=== PATIENT | male | born 1955 | race Two or more races ===

== ENCOUNTER 2017-04-23 11:24 | Inpatient (IN) | payer MEDICARE, MEDICAID ==
[2017-04-23] MEDS ORDERED: NS 0.9% 1000 ML* 1,000 ML IV SCH ×2 (12:00→14:00)
[2017-04-23] MEDS ORDERED: cefTRIAXone(*) 1 GM in NS 0.9% 50 ML* 50 ML IVPB ONE (12:09)
[2017-04-23] MEDS ORDERED: cefTRIAXone(*) 1 GM ADVAN/BAG ONE (12:23)
[2017-04-23 12:42] LABS: Add Diff/Slide Review? Slide Review Added; Comments Flag Yes; Hematocrit 50 % (42-52); Hemoglobin 16.1 g/dl (14.0-18.0); Mean Corpuscular HGB Conc 33 g/dl (31-36); Mean Corpuscular Hemoglobin 28 pg (27-31); Mean Corpuscular Volume 87 fL (80-94); Mean Platelet Volume 9 um3 (7.4-10.4); Red Blood Count 5.71 10^6/ul (4.0-5.4); Red Cell Distribution Width 14 % (10.5-15); White Blood Count 3.1 10^3/ul (3.5-10.8)
[2017-04-23 12:57] LABS: Troponin I 0.01 ng/mL (<0.04)
[2017-04-23 12:58] LABS: Albumin 4.2 g/dL (3.2-5.2); BUN/Creatinine Ratio 17.2 (8-20); C Reactive Protein 9.13 mg/L (< 5.00); Calcium 10.3 mg/dL (8.6-10.3); EGFR Non-African American 41.2 (>60); Globulin 3.7 g/dL (2-4); Magnesium 1.7 mg/dL (1.9-2.7); Potassium 3.7 mmol/L (3.5-5.0); Total Bilirubin 1.8 mg/dL (0.2-1.0); Total Protein 7.9 g/dL (6.4-8.9)
[2017-04-23 13:19] LABS: Immature Granulocytes 23 % (0-9); Neutrophil % 72 % (38-83)
[2017-04-23 13:22] LABS: RBC Morphology Normal (Normal)
[2017-04-23] MEDS ORDERED: Cefepime 2 GM in Dextrose(*) 2 GM/50 ML BAG IV SCH (14:00)
[2017-04-23] MEDS ORDERED: NS 0.9% 1000 ML* 1,000 ML IV ONE ×3 (14:02→17:24)
--- NOTE | 2017-04-23 14:03 | RAD ---
INDICATION: Edema COMPARISON: March 03, 2016 TECHNIQUE: An AP portable view obtained at 1308 hours is submitted. FINDINGS: Bones/Soft Tissues: There are no acute bony findings. Cardiomediastinal: The cardiomediastinal silhouette is normal. Lungs: There are no acute infiltrates. There is mild hyperinflation with mild chronic interstitial change. Pleura: There are no pleural effusions. Other: None IMPRESSION: NO ACTIVE DISEASE.
--- NOTE | 2017-04-23 14:07 | RAD ---
INDICATION: Penile and scrotal edema. Urinary retention. Indwelling urinary catheter. Parkinson's disease. COMPARISON: March 03, 2016 CT. TECHNIQUE: Multidetector CT images were obtained from the lung bases to the ischial tuberosities. Evaluation of the viscera is limited without IV contrast. Multiplanar reformation. REPORT: Bulla at the inferior lingula as on the prior exam. Negative for pleural effusions. Negative for cardiomegaly or pericardial effusion. No CT abnormality of the unenhanced liver. Distended bladder without suspicious CT finding. Negative for biliary dilatation. Unremarkable pancreas and spleen. Negative for CT abnormality of the upper GI or small bowel. While the appendix is not discretely visualized, there is no inflammatory change in the right lower quadrant or region of the tip of the cecum to suggest presence of an acute inflammatory process. Small volume pelvic ascites. Negative for free air. Small fat-containing umbilical hernia without inflammatory change. Unremarkable adrenal glands. 5 mm calyceal stone lower pole RIGHT kidney increased in size over the prior exam. Staghorn calculus at the mid to lower pole of the LEFT kidney measuring up to 3.1 cm cephalocaudal significant increased over the prior exam. Negative for hydronephrosis. Unremarkable nondilated ureters. Catheterized decompressed urinary bladder. Diffuse mild prominence of the urinary bladder wall is nonspecific given decompressed state however trabeculation or cystitis is not excluded. Large bilateral hydroceles at the partially visualized scrotum. Extensive subcutaneous edema at the anterior pelvic wall and perineum as well as the penis. Negative for subcutaneous emphysema. Upper normal short axis bilateral inguinal lymph nodes. Negative for lymphadenopathy. Normal diameter abdominal aorta. Mildly ectatic LEFT common iliac artery measuring up to 1.6 cm diameter without change. Negative for suspicious osseous lesions. IMPRESSION: 1. Urolithiasis increased over the prior exam. Negative for obstructive uropathy. 2. Diffuse mild prominence of the urinary bladder wall is nonspecific given decompressed catheterized state however trabeculation or cystitis is not excluded. 3. Large bilateral hydroceles at the partially visualized scrotum. Extensive subcutaneous edema at the anterior pelvic wall and perineum as well as the penis. Negative for subcutaneous emphysema to definitively identify Ava gangrene. 4. Upper normal bilateral inguinal lymph nodes.
[2017-04-23] MEDS ORDERED: Magnesium Sulfate 2 GM IV* 2 GM/50 ML BAG IVPB ONE (14:14)
[2017-04-23] MEDS ORDERED: Vancomycin per Pharmacy* NOTE FOLLOW UP PRN (14:18)
[2017-04-23] MEDS ORDERED: HYDROcodone/ACETAMIN 5-325 MG* 1 TAB PO PRN (14:31)
--- NOTE | 2017-04-23 14:38 | ED ---
Yosi Estrella Benjamin, scribed for Jorge A Jose MD on 04/23/17 at 1206 . GI/ HPI - HPI Summary HPI Summary: 61yo male comes from [facility] for a catheter change. Pt has hx of Parkinson s disease and pt is nonverbal. Pt exhibits scrotal and penile swelling. Also has pre-existing wounds in bilateral LE. LEVEL 5 CAVEAT pt is nonverbal. - History of Current Complaint Time Seen by Provider: 04/23/17 11:34 Stated Complaint: CATH NEEDS TO BE CHANGE Hx From Patient Unobtainable Due To: Other - LEVEL 5 CAVEAT pt is nonverbal. Timing: Constant Current Severity: None Pain Intensity: 0 Location of Pain: None Associated Signs and Symptoms: Positive: Other: - penile and scrotal edema Additional Signs & Symptoms: Positive: Penile Swelling - Allergy/Home Medications Allergies/Adverse Reactions: Allergies Allergy/AdvReac Type Severity Reaction Status Date / Time Sulfamethoxazole Allergy Unknown Unknown Verified 07/30/13 12:33 w/Trimethoprim Reaction [From Bactrim] Details Home Medications: Home Medications Apixaban* [Eliquis*] 5 mg PO BID 04/23/17 [History Confirmed 04/23/17] Hydrocodone-Acetaminophen [Hydrocodone Bitartrate/AC 7.5-325 mg] 1 tab PO TID [History Confirmed 04/23/17] Menthol-Methyl Salicylate (Divya [Muscle Rub 10-15 %] 1 cre TOPICAL Q2HR PRN 04/23 [History Confirmed 04/23/17] Ranitidine TAB (NF) [Zantac TAB (NF)] 75 mg PO QAM 04/23/17 [History Confirmed 04/23/17] traZODone TAB* [Desyrel TAB*] 50 mg PO BEDTIME 04/23/17 [History Confirmed 04/23] PMH/Surg Hx/FS Hx/Imm Hx Endocrine/Hematology History: Denies: Hx Anticoagulant Therapy, Hx Diabetes, Hx Thyroid Disease, Other Endocrine/Hematological Disorders Cardiovascular History: Denies: Hx Hypertension, Hx Pacemaker/ICD, Other Cardiovascular Problems/ Disorders Respiratory History: Denies: Hx Asthma, Hx Chronic Obstructive Pulmonary Disease (COPD), Other Respiratory Problems/Disorders GI History: Denies: Other GI Disorders History: Reports: Hx Renal Disease - has permaenet indweeling cath Denies: Other Problems/Disorders Musculoskeletal History: Reports: Hx Arthritis Comment Only: Other Musculoskeletal History - Parkinson's Sensory History: Reports: Hx Contacts or Glasses, Hx Vision Problem Denies: Other Sensory Impairments Opthamlomology History: Reports: Hx Contacts or Glasses, Hx Vision Problem Denies: Other Sensory Impairments Neurological History: Denies: Hx Dementia, Other Neuro Impairments/Disorders Comment Only: Hx Seizures - parkinsons disease Psychiatric History: Denies: Hx Substance Abuse, Other Psychiatric Issues/Disorders - Cancer History Cancer Type, Location and Year: parkinsons, carpal tunnel, arthritis - Immunization History Date of Tetanus Vaccine: Unknown Infectious Disease History: No Infectious Disease History: Denies: Hx Hepatitis, Hx Human Immunodeficiency Virus (HIV), Traveled Outside the [place] in Last 30 Days - Family History Known Family History: Positive: Unknown - LEVEL 5 CAVEAT pt is nonverbal. - Social History Alcohol Use: None Alcohol Amount: "a couple of glasses of wine per night" Substance Use Type: Reports: None Substance Use Comment - Amount & Last Used: "I smoke when I can because it helps the Parkinsons" Smoking Status (MU): Never Smoked Tobacco Review of Systems - ROS Summary Review of Systems Summary: LEVEL 5 CAVEAT pt is nonverbal. All Other Systems Reviewed And Are Negative: No Physical Exam Triage Information Reviewed: Yes Vital Signs On Initial Exam: Initial Vitals Temp Pulse Resp BP Pulse Ox 102.8 F 119 13 120/70 97 04/23/17 11:50 04/23/17 11:50 04/23/17 11:50 04/23/17 11:50 04/23/17 11:50 Vital Signs Reviewed: Yes Completion Of Physical Exam Limited Due To: Level 5 - LEVEL 5 CAVEAT pt is nonverbal. Appearance: Positive: No Pain Distress, Well-Nourished Skin: Positive: Warm, Skin Color Reflects Adequate Perfusion, Dry Head/Face: Positive: Normal Head/Face Inspection Eyes: Positive: EOMI, DALJIT ENT: Positive: Normal ENT inspection Neck: Positive: Supple, Nontender Respiratory/Lung Sounds: Positive: Clear to Auscultation, Breath Sounds Present Cardiovascular: Positive: RRR Abdomen Description: Positive: Nontender, Soft Male Genital Exam: Positive: other - glandular hypospadias, penile and scrotal edema Musculoskeletal: Positive: Normal Neurological: Positive: Other - pt is non verbal Diagnostics - Vital Signs Vital Signs Temp Pulse Resp BP Pulse Ox 11/30/17 11:50 102.8 F 119 13 120/70 97 - Laboratory Lab Results: Lab Results 04/23/17 04/23/17 04/23/17 Range/Units 12:00 12:00 12:00 WBC 3.1 L (3.5-10.8) 10^3/ul RBC 5.71 H (4.0-5.4) 10^6/ul Hgb 16.1 (14.0-18.0) g/dl Hct 50 (42-52) % MCV 87 (80-94) fL MCH 28 (27-31) pg MCHC 33 (31-36) g/dl RDW 14 (10.5-15) % Plt Count 251 (150-450) 10^3/ul MPV 9 (7.4-10.4) um3 Immature Gran % (Auto) 23 H (0-9) % Neut % (Auto) 92.9 H (38-83) % Lymph % (Auto) 3.9 L (25-47) % [place] % (Auto) 1.4 (1-9) % Eos % (Auto) 0.5 (0-6) % Baso % (Auto) 1.3 (0-2) % Absolute Neuts (auto) 2.9 (1.5-7.7) 10^3/ul Absolute Lymphs (auto) 0.1 L (1.0-4.8) 10^3/ul Absolute Monos (auto) 0 (0-0.8) 10^3/ul Absolute Eos (auto) 0 (0-0.6) 10^3/ul Absolute Basos (auto) 0 (0-0.2) 10^3/ul Absolute Nucleated RBC 0 10^3/ul Neutrophils % 72 (38-83) % Band Neutrophils % 23 H (0-8) % Lymphocytes % 2 L (25-47) % Monocytes % 3 (0-13) % Nucleated RBC % 0.1 Normal RBC Morphology Normal (Normal) INR (Anticoag Therapy) (0.89-1.11) APTT (26.0-36.3) seconds Sodium 138 (133-145) mmol/L Potassium 3.7 (3.5-5.0) mmol/L Chloride 102 (101-111) mmol/L Carbon Dioxide 25 (22-32) mmol/L Anion Gap 11 (2-11) mmol/L BUN 29 H (6-24) mg/dL Creatinine 1.69 H (0.67-1.17) mg/dL Est GFR ( Amer) 53.0 (>60) Est GFR (Non-Af Amer) 41.2 (>60) BUN/Creatinine Ratio 17.2 (8-20) Glucose 135 H (70-100) mg/dL Lactic Acid (0.5-2.0) mmol/L Calcium 10.3 (8.6-10.3) mg/dL Magnesium 1.7 L (1.9-2.7) mg/dL Total Bilirubin 1.80 H (0.2-1.0) mg/dL AST 23 (13-39) U/L ALT 6 L (7-52) U/L Alkaline Phosphatase 98 (34-104) U/L Total Creatine Kinase 115 (10-223) U/L CK-MB (CK-2) 3.5 (0.6-6.3) ng/mL Troponin I 0.01 (<0.04) ng/mL C-Reactive Protein 9.13 H (< 5.00) mg/L B-Natriuretic Peptide 123 H ( - 100) pg/mL Total Protein 7.9 (6.4-8.9) g/dL Albumin 4.2 (3.2-5.2) g/dL Globulin 3.7 (2-4) g/dL Albumin/Globulin Ratio 1.1 (1-3) Lipase 10 L (11.0-82.0) U/L TSH 1.00 (0.34-5.60) mcIU/mL Influenza A (Rapid) (Negative) Influenza B (Rapid) (Negative) 04/23/17 04/23/17 04/23/17 Range/Units 12:00 12:00 12:44 WBC (3.5-10.8) 10^3/ul RBC (4.0-5.4) 10^6/ul Hgb (14.0-18.0) g/dl Hct (42-52) % MCV (80-94) fL MCH (27-31) pg MCHC (31-36) g/dl RDW (10.5-15) % Plt Count (150-450) 10^3/ul MPV (7.4-10.4) um3 Immature Gran % (Auto) (0-9) % Neut % (Auto) (38-83) % Lymph % (Auto) (25-47) % [place] % (Auto) (1-9) % Eos % (Auto) (0-6) % Baso % (Auto) (0-2) % Absolute Neuts (auto) (1.5-7.7) 10^3/ul Absolute Lymphs (auto) (1.0-4.8) 10^3/ul Absolute Monos (auto) (0-0.8) 10^3/ul Absolute Eos (auto) (0-0.6) 10^3/ul Absolute Basos (auto) (0-0.2) 10^3/ul Absolute Nucleated RBC 10^3/ul Neutrophils % (38-83) % Band Neutrophils % (0-8) % Lymphocytes % (25-47) % Monocytes % (0-13) % Nucleated RBC % Normal RBC Morphology (Normal) INR (Anticoag Therapy) 1.79 H (0.89-1.11) APTT 29.6 (26.0-36.3) seconds Sodium (133-145) mmol/L Potassium (3.5-5.0) mmol/L Chloride (101-111) mmol/L Carbon Dioxide (22-32) mmol/L Anion Gap (2-11) mmol/L BUN (6-24) mg/dL Creatinine (0.67-1.17) mg/dL Est GFR ( Amer) (>60) Est GFR (Non-Af Amer) (>60) BUN/Creatinine Ratio (8-20) Glucose (70-100) mg/dL Lactic Acid 1.7 (0.5-2.0) mmol/L Calcium (8.6-10.3) mg/dL Magnesium (1.9-2.7) mg/dL Total Bilirubin (0.2-1.0) mg/dL AST (13-39) U/L ALT (7-52) U/L Alkaline Phosphatase (34-104) U/L Total Creatine Kinase (10-223) U/L CK-MB (CK-2) (0.6-6.3) ng/mL Troponin I (<0.04) ng/mL C-Reactive Protein (< 5.00) mg/L B-Natriuretic Peptide ( - 100) pg/mL Total Protein (6.4-8.9) g/dL Albumin (3.2-5.2) g/dL Globulin (2-4) g/dL Albumin/Globulin Ratio (1-3) Lipase (11.0-82.0) U/L TSH (0.34-5.60) mcIU/mL Influenza A (Rapid) Negative (Negative) Influenza B (Rapid) Negative (Negative) Result Diagrams: 04/23/17 12:00 04/23/17 12:00 Lab Statement: Any lab studies that have been ordered have been reviewed, and results considered in the medical decision making process. - Radiology CXR Xray Interpretation: No Acute Changes Radiology Interpretation Completed By: Radiologist - ED physician has reviewed this radiology report and agrees. - CT CT A/P CT Interpretation: Positive (See Comments) - IMPRESSION: 1. Urolithiasis increased over the prior exam. Negative for obstructive uropathy. 2. Diffuse mild prominence of the urinary bladder wall is nonspecific given decompressed catheterized state however trabeculation or cystitis is not excluded. 3. Large bilateral hydroceles at the partially visualized scrotum. Extensive subcutaneous edema at the anterior pelvic wall and perineum as well as the penis. Negative for subcutaneous emphysema to definitively identify Ava gangrene. 4. Upper normal bilateral inguinal lymph nodes. CT Interpretation Completed By: Radiologist - ED physician has reviewed this radiology report and agrees. Re-Evaluation - Re-Evaluation First Eval Re-Evaluation Time: 14:17 GIGU Course/Dx - Course Course Of Treatment: BP noted. Allergies noted. Medications reviewed. ADMIT HOSPITALIST. PROBABLE SEPSIS FROM UTI. INITIALLY NO IVF BOLUS IN ED DUE TO UNCERTANTY ABOUT URINARY OUT FLOW AND CHF (SCROTAL EDEMA). IVF BOLUS INITIATED AT ADMISSION. CRITICAL CARE TIME LESS THAN 30 MINUTES. - Diagnoses Provider Diagnoses: Sepsis, Edema of scrotum Discharge - Discharge Plan Condition: Stable Disposition: ADMITTED TO [facility] Referrals: Lyle Canales MD [Medical Doctor] - The documentation as recorded by the Yosi garcias Benjamin accurately reflects the service I personally performed and the decisions made by , Jorge A Jose MD.
[2017-04-23 14:59] LABS: Urine Bacteria Absent (Absent); Urine Bilirubin Negative (Negative); Urine Glucose Negative (Negative); Urine Nitrite Negative (Negative)
[2017-04-23] MEDS ORDERED: Vancomycin(*) 1,500 MG in NS 0.9% 250 ML* 250 ML IVPB ONE (15:00)
[2017-04-23] MEDS ORDERED: Vancomycin(*) 1,500 MG in NS 0.9% 500 ML* 500 ML IVPB ONE (15:00)
[2017-04-23] MEDS ORDERED: Carbidopa/Levodop 25/100 MG TAB(*) PO SCH ×2 (17:00→20:00)
[2017-04-23] MEDS: rOPINIRole TAB* 1 MG PO SCH ×2 (17:38→22:41)
--- NOTE | 2017-04-23 17:56 | PN ---
Hospitalist Progress Note Called to floor for bp 70/46. Patient co-examined with attending. Noted that NS bolus had not been initiated. Pt confused to place and time not to self. Pt denies pain. Patient bernard area again examined this attending edema noted again to penis and Scrotum edematous. Discussed case with critical care. Will given 4 liter bolus total now suspect patient is behind in fluid resuscitation. Will add clinda and will tx to icu. Will re-eval after fluid boluses if bp not improving will consider tx to tertiary care center given toni's could be a possibility however I still suspect the patient has sepsis from prostatitis due to urinary obstruction due to mosqueda becoming dislodged. Will follow closely. Discussed with attending he is in agreement. 1745 patient evaluated after first bolus infused noted to be eating at bedside. Mental status appears to be at baseline will follow.
[2017-04-23] MEDS ORDERED: Clindamycin 600 MG IVPREMIX(* 600 MG/50 ML SDV IV SCH (18:00)
[2017-04-23] MEDS: NS 0.9% 1000 ML* 2,000 ML IV ONE ×4 (18:22→20:21)
[2017-04-23 18:50] LABS: BUN/Creatinine Ratio 16.3 (8-20); Calcium 8.9 mg/dL (8.6-10.3); EGFR African American 41.5 (>60); EGFR Non-African American 32.2 (>60); Potassium 3.6 mmol/L (3.5-5.0)
--- NOTE | 2017-04-23 19:13 | HP ---
CC: Dr. Garcia from [facility] [place] * HISTORY AND PHYSICAL: DATE OF ADMISSION: 04/23/17 PRIMARY CARE PROVIDER: Dr. Garcia from [facility] [place]. ATTENDING PHYSICIAN WHILE IN THE HOSPITAL: Saul Christy MD * (report dictated by Dav Wilson NP) CHIEF COMPLAINT: Dislodged catheter. HISTORY OF PRESENT ILLNESS: Mr. Gates is a 61-year-old male patient, he has a history of Parkinson's; he has history of obesity; lymphedema; recently diagnosed with DVT, he is on Eliquis. He also has a history of arthritis, hypertension, hyperlipidemia, and he has been residing at [facility] [place], he said since 2009. He comes into the ED today, because apparently what had happened, it was found that the patient had edema to his scrotum and to his penis. It was noted that his catheter had been dislodged and he was sent here for replacement. When he got here in the ED, it was noted that he had a fever, he was tachycardic. He appeared to be septic. It was unclear how long the catheter had been dislodged for or how it got dislodged. The patient denies having any pain at this point. He says he does not have any pain in his genitals or any pain in his abdomen. He says that he just feels tired and weak. He denies any chest pain or shortness of breath. He says he has not had any trouble swallowing. Denies having any dysuria, frequency. He was evaluated here again, it was noted that he was tachycardic. He was febrile. He was leukopenic. There was concern for sepsis and we were asked to evaluate for admission. PAST MEDICAL HISTORY: Significant for, 1. Obesity. 2. DVT, on Eliquis. 3. Arthritis. 4. Hypertension. 5. Hyperlipidemia. 6. Parkinson's. 7. Lymphedema. PAST SURGICAL HISTORY: He says the only surgery he has had is a foot surgery. MEDICATIONS: Home meds according to [facility] [place] records include: 1. Tylenol 650 mg every 6 hours as needed. 2. Muscle Rub Cream 1 application topically every 2 hours as needed. 3. Sinemet half a tab at 0900, 0100, and 2000. 4. Sinemet 1 tablet at 1700. 5. Zantac 75 mg daily. 6. Cogentin 3 mg p.o. t.i.d. 7. Trazodone 50 mg p.o. at bedtime. 8. Carbidopa under the tongue 1 tablet at 6 in the morning. 9. Eldepryl 5 mg p.o. b.i.d. 10. Eliquis 5 mg daily. 11. Volga 1 tablet p.o. t.i.d. 12. Requip 3 mg p.o. 4 times a day. 13. Seroquel 25 mg at bedtime. 14. Lasix 40 mg daily. ALLERGIES: Allergies to medications include BACTRIM. FAMILY HISTORY: He says his mother is alive and well. She is also the surrogate decision maker and father has history of emphysema. SOCIAL HISTORY: He does not smoke or drink. Resides at [facility] [place]. Surrogate decision maker is his mother. REVIEW OF SYSTEMS: There is documented fever here, there [facility] none [facility]. Denies any significant weight change. No double vision. No ear discharge. Denies having any rhinorrhea. No sore throat. No thyroid enlargement. Denied having any chest pain. There is no orthopnea, nocturnal dyspnea. There was no abdominal discomfort, no nausea, no vomiting, no dysuria , no frequency, no seizure, no loss of consciousness, no pruritus, and no skin ulcerations. Review of 14 systems completed, all others negative. PHYSICAL EXAMINATION GENERAL: Mr. Gates is a 61-year-old male patient. He is chronically ill appearing. He is sitting in the ED stretcher. He does not appear to be in any acute distress. VITAL SIGNS: Blood pressure 120/70, pulse 119, respirations are 18, O2 sat 97% , temperature 102.8. HEENT: Head: Atraumatic. Eyes: EOMs are intact. Sclerae are anicteric and not pale. NECK: Supple. Throat: Oral mucosa appears to be dry. No oropharyngeal erythema. LUNGS: Clear to auscultation. No wheezes, rales, or rhonchi. HEART: Sounds S1, S2. He is tachycardic. ABDOMEN: Soft, flat, nontender. Bowel sounds are present. EXTREMITIES: Pulses were 2+ throughout. He did have some, what appeared to be , chronic venous stasis ulcer at the lower extremities. He does have on the left extremity some significant warmth and erythema to that left lower extremity and there is an open abrasion there as well to the mid pretibial area. He had 5/5 strength. NEUROLOGIC: The patient is awake, he is alert. He is oriented x3. His tongue is midline. 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 He does have a tremor noted. He has no gross focal deficits. SKIN: Intact with the exception of the abrasion to the left lower extremity. He does have what appears to be a stage 1 pressure ulcer on the sacrum. He has a penile and scrotal edema. The perineum was palpated. There was no pain on palpation or I cannot appreciate any subcutaneous emphysema. On my exam, there was no erythema noted there as well, just mostly in the sacrum. Otherwise the skin is intact. DIAGNOSTIC STUDIES/LAB DATA: WBC is 3.1, RBC of 5.71, hemoglobin of 16.1, hematocrit was 50, platelet count 251. His INR was 1.79, PTT at 29.6. Sodium 138, potassium 3.7, chloride 102, bicarb 25, BUN 29, creatinine 1.69 which is up from his baseline, glucose 135, lactate 1.7, calcium 10.3, mag 1.7. Total bilirubin 0.8, AST 23, ALT 6, alk phos 98. CK 115, CK-MB 3.5, troponin 0.01, CRP at 9, BNP of 123. Albumin of 4.2. His TSH was 1. Lipase low. Negative for flu. He did have a CT of the abdomen and pelvis. Impression: Urolithiasis increased over the prior exam. Negative for obstructive uropathy. Diffuse mild prominence of the urinary bladder wall, it is nonspecific given the compressed catheterized state, however, cystitis is not excluded or trabeculation. There are large bilateral hydroceles at the partially visualized scrotum. Extensive subcutaneous edema at the anterior pelvic wall and perineum as well as the penis. Negative for subcutaneous edema to definitely identify Ava gangrene. Upper normal bilateral inguinal lymph nodes. Chest x-ray showed no acute disease. Old medical records were reviewed. ASSESSMENT/PLAN: Mr. Gates is a 61-year-old male patient, coming into the ED today with complaints of dislodged catheter and also he was found to have scrotal edema and penile edema. On evaluation done here, he was noted to be septic. We were asked to evaluate for patient to be admitted under inpatient status for: 1. Sepsis. Secondary to most likely urinary source, possibly cellulitis. My plan at this point is to try to get a urinalysis. A culture is pending, but I do not have the UA. I suspect he probably became obstructed and probably now has again acute cystitis causing sepsis as evidenced by the tachycardia and the fever and he is also leukopenic. He also does have some acute renal failure on top of this. My plan will be to give him 2 L of fluids. He has been cultured here in the ED, we will musa culture him. I also will check a swallow eval, though I think aspiration is less likely and we will go ahead and place him on cefepime and vancomycin and follow him closely. I do note that he has subcutaneous edema, but no emphysema and he was nontender and not having any pain, so I think Ava is low on the differential. At this point, I think the more reasonable reason for infection is probably obstructive uropathy, is now resolved. 2. Acute renal failure. Probably related to obstructive uropathy, but we will get a FENa. His catheter is draining and we will hydrate him and follow his BMPs daily. 3. History of lymphedema. Continue with meds prescribed. 4. Parkinson's. Continue with meds prescribed. 5. Recent deep vein thrombosis. He is on Eliquis. 6. Hypertension. We will hold his Lasix in the setting of acute . 7. Hyperlipidemia. Continue with meds prescribed. 8. DVT prophylaxis will be on Eliquis. 9. Code status: He wishes to be full code. 10: Fluid, electrolytes and nutrition: He can be on regular diet. TIME SPENT: Time spent on the admission was 60 minutes, greater than half of the time was spent [id number] with the patient, obtaining history and physical , the other half of the time was spent going over the plan of care with the patient and implementing the plan of care. I did discuss plan of care with my attending, Dr. Christy, who is in agreement. DAV WILSON, RENEE [id number]/[facility] #: [id number] MARLEN
[2017-04-23] MEDS ORDERED: Norepinephrine 16MCG/ML IVPRE* 4,000 MCG/250 ML BAG IV ONE (19:51)
[2017-04-23] MEDS ORDERED: Norepinephrine 16MCG/ML IVPRE* 4,000 MCG/250 ML BAG IV SCH (20:00)
[2017-04-23] MEDS ORDERED: Apixaban* 5 MG TAB PO SCH (21:00)
[2017-04-23] MEDS ORDERED: Benztropine TAB* 1 MG PO SCH (21:00)
[2017-04-23] MEDS ORDERED: QUEtiapine TAB* 25 MG PO SCH (21:00)
[2017-04-23] MEDS ORDERED: Selegiline TAB* 5 MG PO SCH (21:00)
[2017-04-23] MEDS ORDERED: traZODone TAB* 50 MG TAB PO SCH (21:00)
[2017-04-23] MEDS ORDERED: Sodium Bicarbonate 8.4%* 50 ML SYRINGE IV ONE (22:20)
[2017-04-23 23:40] VITALS: BP 107/54
[2017-04-24] MEDS ORDERED: Vancomycin(*) 1,000 MG in NS 0.9% 250 ML* 250 ML IVPB SCH (04:30)
[2017-04-24] MEDS ORDERED: Carbidopa/Levodop 25/100 MG TAB(*) PO SCH (06:00)
[2017-04-24] MEDS ORDERED: Famotidine TAB* 20 MG PO SCH (09:00)
--- NOTE | 2017-04-24 13:21 | DS ---
CC: Dr. Garcia * DISCHARGE SUMMARY: DATE OF ADMISSION: 04/23/17 DATE OF TRANSFER: 04/23/17 ACCEPTING PHYSICIAN IN TRANSFER: Dr. Giordano from [facility]. PRIMARY CARE PROVIDER: Dr. Garcia. ATTENDING PHYSICIAN WHILE IN THE HOSPITAL: Saul Christy MD * (report dictated by Jacobo Lockett). SUPERVISING PHYSICIAN NOW: Dr. Rodriguez and Dr. Dorothy Briggs. 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 SECONDARY DIAGNOSES: Include: 1. Deep vein thrombosis, unknown duration, and once he was diagnosed, looks like he was on Eliquis started back in January. We will need to get records from [facility] facility. They may have done an ultrasound outpatient. 2. Parkinson's. 3. Acute renal failure. 4. Hypertension. TRANSFER MEDICATIONS: Include: 1. Normal saline 150 an hour. 2. Cefepime 2 g IV every 24 hours. 3. Vancomycin 1000 mg IV q. 12. 4. Clindamycin 600 mg every 8 hours. 5. Levophed 10 mcg a minute. His home medications according to the [facility] notes include: 1. Tylenol 650 mg every 6 hours. 2. Muscle Rub cream topically every 2 hours as needed. 3. Sinemet half a tab at 0900, 1300, and 2000. 4. Sinemet 1 tablet at 1700. 5. Zantac 75 mg daily. 6. Cogentin 3 mg p.o. t.i.d. 7. Trazodone 50 mg at bedtime. 8. Carbidopa ODT 1 tablet at 0600. 9. Eldepryl 5 mg p.o. b.i.d. 10. Apixaban 5 mg p.o. b.i.d., started in January of this year. 11. Hydrocodone 1 tablet p.o. t.i.d. 12. Requip 3 mg p.o. q.i.d. 13. Seroquel 25 mg p.o. at bedtime. 14. Lasix 40 mg p.o. daily. PHYSICAL EXAM ON TRANSFER: Blood pressure 103/47 with a pulse of 100, respirations were 25, O2 sat 95% on room air, and temperature of 100.3. General : At this time, Mr. Gates is a 61-year-old male patient. He is sitting in the ICU bed. He does not appear to be in any respiratory acute distress. He is awake. He is confused to place. He thinks he is in [facility]. He knows his name. He appears to be chronically ill. He does not appear to be in any acute respiratory distress. HEENT: Head: Atraumatic. Eyes: EOMs intact. Sclerae anicteric, not pale. Neck was supple. Throat: Oral mucosa appears to be dry. No oropharyngeal erythema. Heart: Sounds S1 and S2. Regular, rate and rhythm. No murmurs, rubs, or gallops. Lungs are clear to auscultation. No wheezes, rales, or rhonchi. Abdomen: Soft, flat, nontender. Bowel sounds are present. Extremities: Pulses were 2+ throughout. He did have erythema and abrasions noted to the right lower extremity. system: He does have scrotal edema. In addition to this, does have some erythema noted in the sacrum. He has scrotal and penile edema. He does have an abrasion on the scrotum, it is now painful with palpation of the scrotum. There is no pain on palpation of the perineum. Otherwise, the skin was grossly intact. Neurologically; again he is drowsy, but he awakens to his name. He is alert. He is oriented to self and time. He said it was almost Chato to me tonight. Speech is clear. Tongue midline. No gross focal deficits. Skin: Grossly intact with the exception he has abrasions to bilateral lower extremities. He has stage I pressure ulcer noted to the sacrum. HISTORY OF PRESENT ILLNESS AND HOSPITAL COURSE: Mr. Gates is a 61-year-old male patient [facility] to [facility] emergency department today because his Brandt had become dislodged and there was noted to be scrotal edema and penile edema. The patient had come from the [place] [facility] for a catheter exchange. When he came in to the ED, the patient's catheter was changed and it was noted that he had a 1500 cc output immediately. He appeared to be obstructed. While in the ED, it was noted that he had a fever of 102.8, tachycardic at 119, respirations were 13, O2 sat 97%, blood pressure initially was 120/70. The patient was evaluated in the ED by myself. I noted that he had a white count of 3.1. He had bandemia. He did have notable scrotal edema and penile edema. His perineum was evaluated by myself and it was noted that he had no pain on palpation at this point, particularly in the perineum area. The patient did have a CAT scan, which did show a significant amount of edema in the perineal muscles, but there was no gas that was noted. There was no subcutaneous emphysema; there was none palpated on exam. He appeared to be stable. He was mentating well. He was breathing well. I actually initially admitted him to our telemetry floor to monitor his heart rate. I had ordered a liter bolus wide open, the ER had not given any because there was concern for the urinary retention and the scrotal edema. He got to the floor. Shortly arriving on the floor, I received the phone call that his blood pressures were systolics in the 70s. I asked the nursing staff up there to give him 3 L wide open. I went and evaluated the patient with my attending, Dr. Christy, at that time. We both felt that he will probably require ICU care. We were unsure what the infectious source was, it was possibly coming from prostatitis or gram- negative bacteremia from him having urinary retention. He was admitted down to the ICU. I did touch base with my residence director given the change in condition and the fact that he needed to be transferred to a higher level of care. At this point, we discussed giving him another 3 L of fluid for a total of 6 L. He , after the 3 L, responded a little bit. His blood pressure did go up from the 60s in to the 70s. Initially when he came down to the ICU, it looked like his blood pressure was 117/76. He was responding. However, they did drop again into the 70s, and at point, I made a decision to start the Levophed, gave him another 3 L of fluid. Again, he got a total of 6 L wide open. We repeated his lactic and his labs, it was noted at 1830 that his creatinine had gone up to 2.09. His lactic had climbed to 5.6. In addition to this, his bicarb was noted to be 21. At that point, I touched base with Dr. Rodriguez again and he evaluated the scans and that he said to continue with fluids and he said he was going to evaluate the scans and get him up on his Levo, which I had been doing. I did receive a phone call about an hour ago around 2100 and we discussed the case again, Dr. Rodriguez and myself and we felt that because he was just clinically with his vital signs not responding and he was requiring more Levo and Dr. Rodriguez has evaluated the scan and the amount of edema, there was concern that this may early Ava given his clinical status and now he has been deteriorating. At this point, a decision was made that he will need an higher level of care and we deemed transfer to [facility] was appropriate. Fortunately, he is still mentating about the same as he has been throughout the hospital course. He is making good urine output. He is making 30 to 40 cc an hour. I did bump his Levo up to 10 mcg/min to give him some time with perfusion. It hopefully help clear his acid loads secondary to the sepsis and help him perfuse. His blood pressure now was 103/40s. I also put him on 6 L empirically, because his respiratory rate had creeped into the mid 20s and his O2 sats have been maintaining, but I feel that the extra oxygen could again help him from a respiratory standpoint. Certainly, he does not need intubation at this point. I did touch base with Dr. Giordano who graciously accepted the patient at [facility]. They felt that he was stable for ground transport as did my attendings, Dr. Mag Briggs, who is the manager distribution covering, and Dr. Rodriguez. The patient is going to receive fluids at 150 an hour, be placed on Levophed at 10 mcg. It is unfortunately going through a peripheral, but again at this point we do no have central access. I did discuss this with the accepting physician. They were agreeable to this. His repeat lactic after the resuscitation was 4.1, so we will continue with fluids, we will transfer him. I am sending disc. I did touch base with the patient's mother, who is the surrogate decision maker, her name is Sofiya Gates. The number of her is . She at this point is in agreement with transfer and will be available for any questions. I did hold his Eliquis tonight. Again, presumably according to [facility] notes, he had recent DVT and he has been on this since January. We will need to address this, but again I am holding it for the concerns that if he does need an extensive surgery, he does not need to be on Eliquis. I could consider starting a heparin drip, but at this point I am going to hold off until he is evaluated at [facility]. His last dose was this morning at 0900. Hemodynamically, he is improving, but he is on excessive amount of pressors. He will be transferred to [facility]. On transfer again he is unstable given the fact that he is requiring so much Levophed. This is a complex case, I refer you to the chart for details. TIME SPENT: Time spent on the transfer, critical care time, was approximately 60 minutes, greater than half the time spent [id number] with the patient going over the discharge plan, the other half time was spent implementing the plan. I discussed it again with residence director, and also discussed it with Dr. Briggs. ENEIDA DELACRUZ, MANAGER CALL CENTER [id number]/CPS #: [id number] MARLEN
[2017-04-25] MEDS ORDERED: Vancomycin Trough Check NOTE FOLLOW UP ONE (04:00)
== END 2017-04-23 23:40 | disposition short-term general hospital (02) | DRG 871 ==
LOC: ED 11:24 → MEDTELE 13:54 → ICU 18:28
PROVIDERS: ADMIT Internal Medicine; ATTEND Internal Medicine
PROC: 3E033XZ Introduction of Vasopressor into Peripheral Vein, Percutaneous Approach (ICD-10-PCS; principal; 2017-04-23)
DX: A41.9 Sepsis, unspecified organism (principal); R65.21 Severe sepsis with septic shock; I82.409 Acute embolism and thrombosis of unspecified deep veins of unspecified lower extremity; N17.9 Acute kidney failure, unspecified; N49.3 Fournier gangrene; G20 Parkinson's disease; I10 Essential (primary) hypertension; E66.9 Obesity, unspecified; Z68.29 Body mass index [BMI] 29.0-29.9, adult; M19.90 Unspecified osteoarthritis, unspecified site; E78.5 Hyperlipidemia, unspecified; Z88.1 Allergy status to other antibiotic agents; I89.0 Lymphedema, not elsewhere classified
CPT/HCPCS: 36415; 71010; 74176; 80048; 80053; 81003; 81015; 82550; 82553; 82570; 83605; 83690; 83735; 83880; 84300; 84443; 84484; 85025; 85610; 85730; 86140; 87040; 87077; 87086; 87186; 87502; 87641; A9270-GY; J0692; J0696; J3370; J3475

== ENCOUNTER 2018-11-06 12:48 | Emergency (ER) | payer MEDICARE, MEDICAID ==
--- NOTE | 2018-11-06 13:20 | ED ---
Complex/Multi-Sys Presentation - HPI Summary HPI Summary: The patient is a 62 y/o M arriving by ambulance to [facility] from [facility] [place] with a chief complaint of gradual onset lethargy, chills, and diaphoresis over the last few days. He additionally c/o back pain. He denies fever, cough, abd pain, nausea, vomiting, or diarrhea. His pain is currently rated 9/10 in severity. There are no aggravating or alleviating factors. He states he hasn't been feeling himself lately. Hx of Parkinson's. Former smoker, no EtOH, no substance use. - History Of Current Complaint Chief Complaint: EDGeneral Time Seen by Provider: 11/06/18 13:02 Hx Obtained From: Patient Onset/Duration: Gradual Onset, Lasting Days, Still Present Timing: Days Severity Currently: Moderate Severity Initially: Mild Character: Dull Aggravating Factor(s): none Alleviating Factor(s): none Associated Signs And Symptoms: Positive: Back Pain, Diaphoresis, Other - lightheadedness, chills. Negative: Cough, Nausea, Vomiting, Diarrhea, Abdominal Pain, Fever - Allergies/Home Medications Allergies/Adverse Reactions: Allergies Allergy/AdvReac Type Severity Reaction Status Date / Time sulfamethoxazole Allergy Unknown Verified 11/06/18 13:28 [From Bactrim] Reaction Details trimethoprim [From Bactrim] Allergy Unknown Verified 11/06/18 13:28 Reaction Details Home Medications: Home Medications Carbidopa/Levodop CR 50/200(*) [Sinemet CR 50/200(*)] 1 tab.cr PO BID 11/06/18 [ History Confirmed 11/06/18] Cimetidine [Tagamet Hb] 200 mg PO BID 11/06/18 [History Confirmed 11/06/18] PMH/Surg Hx/FS Hx/Imm Hx Endocrine/Hematology History: Denies: Hx Anticoagulant Therapy, Hx Diabetes, Hx Thyroid Disease, Other Endocrine/Hematological Disorders Cardiovascular History: Denies: Hx Hypercholesterolemia, Hx Hypertension, Hx Pacemaker/ICD, Other Cardiovascular Problems/Disorders Respiratory History: Denies: Hx Asthma, Hx Chronic Obstructive Pulmonary Disease (COPD), Other Respiratory Problems/Disorders GI History: Denies: Other GI Disorders History: Reports: Hx Renal Disease - has permaenet indweeling cath Denies: Other Problems/Disorders Musculoskeletal History: Reports: Hx Arthritis Comment Only: Other Musculoskeletal History - Parkinson's Sensory History: Reports: Hx Vision Problem Denies: Hx Contacts or Glasses, Hx Hearing Aid, Other Sensory Impairments Opthamlomology History: Reports: Hx Vision Problem Denies: Hx Contacts or Glasses, Other Sensory Impairments Neurological History: Denies: Hx Dementia, Other Neuro Impairments/Disorders Comment Only: Hx Seizures - parkinsons disease Psychiatric History: Denies: Hx Substance Abuse, Other Psychiatric Issues/Disorders - Cancer History Cancer Type, Location and Year: parkinsons, carpal tunnel, arthritis - Immunization History Date of Tetanus Vaccine: Unknown Infectious Disease History: No Infectious Disease History: Denies: Hx Hepatitis, Hx Human Immunodeficiency Virus (HIV), Traveled Outside the [place] in Last 30 Days - Family History Known Family History: Negative: Hypertension - Social History Lives: Assisted Living Alcohol Use: None Hx Substance Use: No Substance Use Type: Reports: None Hx Tobacco Use: Yes Smoking Status (MU): Former Smoker Review of Systems Positive: Chills, Skin Diaphoresis, Other - lethargy. Negative: Fever Negative: Cough Negative: Abdominal Pain, Vomiting, Diarrhea, Nausea Positive: Other - back pain All Other Systems Reviewed And Are Negative: Yes Physical Exam - Summary Physical Exam Summary: VITAL SIGNS: Reviewed. GENERAL: Patient is a well-developed and obese male who is lying comfortable in the stretcher. Patient is not in any acute respiratory distress. HEAD AND FACE: No signs of trauma. No ecchymosis, hematomas or skull depressions. No sinus tenderness. EYES: PERRLA, EOMI x 2, No injected conjunctiva, no nystagmus. EARS: Hearing grossly intact. Ear canals and tympanic membranes are within normal limits. MOUTH: Oropharynx within normal limits. NECK: Supple, trachea is midline, no adenopathy, no JVD, no carotid bruit, no c- spine tenderness, neck with full ROM. CHEST: Symmetric, no tenderness at palpation LUNGS: Crackles in both bases of lungs. No wheezing. CVS: Regular rate and rhythm, S1 and S2 present, no murmurs or gallops appreciated. ABDOMEN: Soft, non-tender. No signs of distention. No rebound no guarding, and no masses palpated. Bowel sounds are normal. EXTREMITIES: 1+ pedal edema. FROM in all major joints, no cyanosis or clubbing. NEURO: Alert and oriented x 3. No acute neurological deficits. Speech is normal and follows commands. SKIN: Dry and warm. GCS: 15. Triage Information Reviewed: Yes Vital Signs On Initial Exam: Initial Vitals Temp Pulse Resp BP Pulse Ox 98.6 F 79 16 153/97 98 11/06/18 12:57 11/06/18 12:57 11/06/18 12:57 11/06/18 12:57 11/06/18 12:57 Vital Signs Reviewed: Yes - Douglas Coma Scale Best Eye Response: 4 - Spontaneous Best Motor Response: 6 - Obeys Commands Best Verbal Response: 5 - Oriented Coma Scale Total: 15 Diagnostics - Vital Signs Vital Signs Temp Pulse Resp BP Pulse Ox 11/06/18 12:57 98.6 F 79 16 153/97 98 - Laboratory Result Diagrams: 11/06/18 13:47 11/06/18 13:47 Lab Statement: Any lab studies that have been ordered have been reviewed, and results considered in the medical decision making process. - Radiology CXR Radiology Interpretation Completed By: Radiologist Summary of Radiographic Findings: COPD. Right shoulder dislocation. ED physician has reviewed this radiology report. - CT Brain CT CT Interpretation Completed By: Radiologist Summary of CT Findings: No acute intracranial pathology. ED physician has reviewed this radiology report. - EKG 1325 Cardiac Rate: NL - 79 BPM EKG Rhythm: Sinus Rhythm EKG Comparison: No Significant Change - Similar to previous EKG taken on 2010. Summary of EKG Findings: No ST elevations. Re-Evaluation - Re-Evaluation First Eval Re-Evaluation Time: 16:00 Comment: I discussed discharge home with the patient. Complex Multi-Symp Course/Dx Assessment/Plan: The patient is a 62 y/o M arriving by ambulance to [facility] from [facility], [place] with a chief complaint of gradual onset lethargy, chills, and diaphoresis over the last few days. He additionally c/o back pain. He denies fever, cough, abd pain, nausea, vomiting, or diarrhea. His pain is currently rated 9/10 in severity. There are no aggravating or alleviating factors. He states he hasn't been feeling himself lately. Hx of Parkinson's. Former smoker, no EtOH, no substance use. Blood test results without any significant abnormality except for slight anemia, glucose of 218, magnesium of 1.8, and troponin of 0.00. Urinalysis with positive UTI. In the ED course, the patient was given ciprofloxacin. At this time I believe that the symptoms are secondary to the UTI and also the use of opiates. Therefore, the patient was given antibiotics and will be discharged home with follow-up with PCP. Patient is hemodynamically stable alert and oriented 3. I discussed all the findings and test results with the patient. Patient was instructed to return to the emergency room immediately if any of the symptoms return worsens. Plan of care was discussed with the patient and understands and agrees. All questions were answered at patient satisfaction. There were no further complaints or concerns. Lung exam before discharge: CTA B/L. Good air exchange. No wheezing or crackles heard. CVS: S1 and S2 present. No murmurs appreciated. Patient is alert and oriented x 3. Patient is hemodynamically stable. Patient will be discharged home with follow up PCP in the next 2-3 days. - Diagnoses Provider Diagnoses: UTI (urinary tract infection) Discharge - Sign-Out/Discharge Documenting (check all that apply): Patient Departure - Patient will be discharged home. Patient Received Moderate/Deep Sedation with Procedure: No - Discharge Plan Condition: Stable Disposition: HOME Prescriptions: Ciprofloxacin TAB* [Cipro 500 MG TAB*] 500 mg PO BID #10 tab Patient Education Materials: Urinary Tract Infection in Men (DC) Referrals: Wagner Hardy [Primary Care Provider] - 3 Days Additional Instructions: Please take medication as prescribed. Follow up with your primary care provider in 2-3 days. RETURN TO THE EMERGENCY DEPARTMENT FOR ANY NEW OR WORSENING SYMPTOMS. - Billing Disposition and Condition Condition: STABLE Disposition: Home - Attestation Statements Document Initiated by Diana: Yes Documenting Scribe: Edith Britt Provider For Whom Diana is Documenting (Include Credential): Dr. Simone Mathur MD Scribe Attestation: Edith Estrella scribed for Dr. Simone Mathur MD on 11/07/18 at 1755. Scribe Documentation Reviewed: Yes Provider Attestation: The documentation as recorded by the Edith garcias accurately reflects the service I personally performed and the decisions made by me, Dr. Simone Mathur MD Status of Scribe Document: Viewed
[2018-11-06 13:56] LABS: ABS Basophils 0.1 10^3/ul (0-0.2); ABS Eosinophils 0.3 10^3/ul (0-0.6); ABS Lymphocytes 0.7 10^3/ul (1.0-4.8); ABS Monocytes 0.5 10^3/ul (0-0.8); ABS Neutrophils 4.5 10^3/ul (1.5-7.7); Eosinophil % 4.4 %; Hematocrit 37 % (42-52); Mean Corpuscular HGB Conc 33 g/dL (31-36); Mean Corpuscular Hemoglobin 26 pg (27-31); Mean Corpuscular Volume 80 fL (80-94); Mean Platelet Volume 7.5 fL (7.4-10.4); Platelet Count 354 10^3/uL (150-450); Red Blood Count 4.61 10^6 /uL (4.18-5.48); Red Cell Distribution Width 14 % (10-15); White Blood Count 6.2 10^3/uL (3.5-10.8)
[2018-11-06 14:14] LABS: ALT 4 U/L (7-52); AST 15 U/L (13-39); Albumin 3.9 g/dL (3.2-5.2); Alkaline Phosphatase 94 U/L (34-104); Anion Gap 7 mmol/L (2-11); Blood Urea Nitrogen 19 mg/dL (6-24); CO2 Carbon Dioxide 28 mmol/L (22-32); Calcium 9.6 mg/dL (8.6-10.3); Chloride 101 mmol/L (101-111); Creatine Kinase 71 U/L (10-223); EGFR African American 96.6 (>60); EGFR Non-African American 79.8 (>60); Globulin 3.9 g/dL (2-4); Glucose 218 mg/dL (70-100); Magnesium 1.8 mg/dL (1.9-2.7); Potassium 4.3 mmol/L (3.5-5.0); Sodium 136 mmol/L (135-145); Total Protein 7.8 g/dL (6.4-8.9)
[2018-11-06 14:36] LABS: Acetaminophen < 15 mcg/mL; Alcohol < 10 mg/dL (<10)
[2018-11-06 14:40] LABS: Urine Appearance Turbid; Urine Bacteria Absent (Absent); Urine Bilirubin Negative (Negative); Urine Blood 1+ (Negative); Urine Color Yellow; Urine Glucose Negative (Negative); Urine Ketones Negative (Negative); Urine Nitrite Negative (Negative); Urine Protein 2+(100 mg/dL) (Negative); Urine Red Blood Cell 3+(>10/hpf) (Absent); Urine Specific Gravity 1.012 (1.010-1.030); Urine Urobilinogen Negative (Negative); Urine White Blood Cell 3+(>20/hpf) (Absent)
[2018-11-06 14:47] LABS: Urine Benzodiazepine Screen None Detected (None Detect); Urine Opiates Screen Presumptive Positive (None Detect)
[2018-11-06] MEDS ORDERED: Ciprofloxacin TAB* 500 MG PO ONE (15:54)
[2018-11-06 16:10] VITALS: BP 114/74
--- NOTE | 2018-11-10 08:50 | PN ---
Progress Note - Progress Note Date of Service: 11/06/18 Note: Provider called [facility] Emergency Department at 8:50 AM to make aware of culture sensitivities RN stated she had she had sensitivities already and patient was already switched by provider at [facility]
== END 2018-11-06 16:09 | disposition home or self-care (01) ==
LOC: ED 12:48
DX: N39.0 Urinary tract infection, site not specified (principal); M54.9 Dorsalgia, unspecified; R61 Generalized hyperhidrosis; R42 Dizziness and giddiness; R53.83 Other fatigue; J44.9 Chronic obstructive pulmonary disease, unspecified; M24.311 Pathological dislocation of right shoulder, not elsewhere classified; G20 Parkinson's disease; Z88.2 Allergy status to sulfonamides; Z87.891 Personal history of nicotine dependence
CPT/HCPCS: 36415; 70450; 71045; 80053; 80307; 80320; 80329; 81003; 81015; 82140; 82550; 83605; 83735; 84443; 84484; 85025; 87077; 87086; 87184; 87186; 93005; 99283; A9270-GY; G0480

== ENCOUNTER 2019-03-08 21:48 | Emergency (ER) | payer MEDICARE, MEDICAID ==
[2019-03-08 23:52] LABS: ABS Basophils 0.1 10^3/ul (0-0.2); ABS Eosinophils 0.2 10^3/ul (0-0.6); ABS Lymphocytes 1.4 10^3/ul (1.0-4.8); ABS Monocytes 0.5 10^3/ul (0-0.8); ABS Neutrophils 4.1 10^3/ul (1.5-7.7); Eosinophil % 3.9 %; Hematocrit 39 % (42-52); Hemoglobin 12.5 g/dL (14.0-18.0); Mean Corpuscular HGB Conc 33 g/dL (31-36); Mean Corpuscular Hemoglobin 28 pg (27-31); Mean Corpuscular Volume 85 fL (80-94); Mean Platelet Volume 8.3 fL (7.4-10.4); Platelet Count 252 10^3/uL (150-450); Red Blood Count 4.54 10^6 /uL (4.18-5.48); Red Cell Distribution Width 14 % (10-15); White Blood Count 6.4 10^3/uL (3.5-10.8)
[2019-03-08 23:54] LABS: Urine Appearance Turbid; Urine Bacteria Absent (Absent); Urine Bilirubin Negative (Negative); Urine Blood 1+ (Negative); Urine Color Yellow; Urine Glucose Negative (Negative); Urine Ketones Negative (Negative); Urine Nitrite Negative (Negative); Urine Protein 1+(30 mg/dL) (Negative); Urine Red Blood Cell 1+(3-5/hpf) (Absent); Urine Specific Gravity 1.014 (1.010-1.030); Urine Urobilinogen Negative (Negative); Urine White Blood Cell 3+(>20/hpf) (Absent)
--- NOTE | 2019-03-08 23:55 | ED ---
Headache - HPI Summary HPI Summary: 63 year old male presents with headache for the past couple days. He states it is not the worst headache of his leg. Has history of headaches but has not had one in a while. He states that he had a headache a week ago that resolved. He does have a history of Parkinson's. He states that he has had a little bit more of a tremor. He denies any seizure-like activity. He states that one of the nurses thought he had a seizure but the nurse that was with him did not. He denies being more weak than normal. No difficulties with speech more than normal. No numbness or tingling. No chest pain or shortness breath. Denies any other symptoms. No history of seizures. - History Of Current Complaint Chief Complaint: EDHeadache Stated Complaint: HEADACHE; SEIZURE LIKE SYMPTOMS PER EMS Time Seen by Provider: 03/08/19 22:57 - Allergies/Home Medications Allergies/Adverse Reactions: Allergies Allergy/AdvReac Type Severity Reaction Status Date / Time sulfamethoxazole Allergy Unknown Verified 03/08/19 21:51 [From Bactrim] Reaction Details trimethoprim [From Bactrim] Allergy Unknown Verified 03/08/19 21:51 Reaction Details Home Medications: Home Medications Acetaminophen [Acetaminophen Extra Strength] 1,000 mg PO Q12HR PRN 03/08/19 [ History Confirmed 03/08/19] Bismuth Subsalicylate [Kaopectate] 30 ml PO Q1HR PRN 03/08/19 [History Confirmed 03/08/19] Carbidopa/Levodop 25/100 MG(*) [Sinemet 25/100 TAB(*)] 0.5 tab PO 1300,1700, 2100 03/08/19 [History Confirmed 03/08/19] Carbidopa/Levodop 25/100 MG(*) [Sinemet 25/100 TAB(*)] 1 tab PO DAILY 03/08/19 [ History Confirmed 03/08/19] Carbidopa/Levodop CR 50/200(*) [Sinemet CR 50/200(*)] 1 tab.cr PO 0900,2100 [History Confirmed 03/08/19] Glecaprevir/Pibrentasvir [Mavyret 100-40 mg Tablet] 1 tab PO DAILY 03/08/19 [ History Confirmed 03/08/19] HYDROcodone/ACETAMIN 5-325 MG* [M[place]pah 5-325 TAB*] 1 tab PO BID PRN 03/08/19 [ History Confirmed 03/08/19] Menthol [Biofreeze] 4 % TOPICAL DAILY PRN 03/08/19 [History Confirmed 03/08/19] Menthol/Colloidal Oatmeal [Eucerin Skin Calming Itch] 0.1 % TOPICAL DAILY PRN [History Confirmed 03/08/19] QUEtiapine TAB* [Seroquel 25 MG TAB*] 12.5 mg PO BEDTIME 03/08/19 [History Confirmed 03/08/19] Selegiline TAB* [Eldepryl TAB*] 5 mg PO BID 03/08/19 [History Confirmed 03/08/19 ] PMH/Surg Hx/FS Hx/Imm Hx Endocrine/Hematology History: Denies: Hx Anticoagulant Therapy, Hx Diabetes, Hx Thyroid Disease, Other Endocrine/Hematological Disorders Cardiovascular History: Denies: Hx Hypercholesterolemia, Hx Hypertension, Hx Pacemaker/ICD, Other Cardiovascular Problems/Disorders Respiratory History: Denies: Hx Asthma, Hx Chronic Obstructive Pulmonary Disease (COPD), Other Respiratory Problems/Disorders GI History: Denies: Other GI Disorders History: Reports: Hx Renal Disease - has permaenet indweeling cath Denies: Other Problems/Disorders Musculoskeletal History: Reports: Hx Arthritis Comment Only: Other Musculoskeletal History - Parkinson's Sensory History: Reports: Hx Vision Problem Denies: Hx Contacts or Glasses, Hx Hearing Aid, Other Sensory Impairments Opthamlomology History: Reports: Hx Vision Problem Denies: Hx Contacts or Glasses, Other Sensory Impairments Neurological History: Denies: Hx Dementia, Other Neuro Impairments/Disorders Comment Only: Hx Seizures - parkinsons disease Psychiatric History: Denies: Hx Substance Abuse, Other Psychiatric Issues/Disorders - Cancer History Cancer Type, Location and Year: parkinsons, carpal tunnel, arthritis - Immunization History Date of Tetanus Vaccine: Unknown Infectious Disease History: No Infectious Disease History: Denies: Hx Hepatitis, Hx Human Immunodeficiency Virus (HIV), Traveled Outside the [place] in Last 30 Days - Family History Known Family History: Positive: Unknown - LEVEL 5 CAVEAT pt is nonverbal. Negative: Hypertension - Social History Alcohol Use: None Alcohol Amount: "a couple of glasses of wine per night" Hx Substance Use: No Substance Use Type: Reports: None Substance Use Comment - Amount & Last Used: "I smoke when I can because it helps the Parkinsons" Hx Tobacco Use: Yes Smoking Status (MU): Former Smoker Review of Systems Negative: Fever Negative: Chest Pain Negative: Shortness Of Breath Negative: Nausea Positive: Headache All Other Systems Reviewed And Are Negative: Yes Physical Exam Triage Information Reviewed: Yes Vital Signs On Initial Exam: Initial Vitals Temp Pulse Resp BP Pulse Ox 98.4 F 53 16 130/84 100 03/08/19 21:49 03/08/19 21:49 03/08/19 21:49 03/08/19 21:49 03/08/19 21:49 Vital Signs Reviewed: Yes Appearance: Positive: Well-Appearing Skin: Positive: Warm, Dry Head/Face: Positive: Normal Head/Face Inspection Eyes: Positive: Normal, EOMI, DALJIT, Conjunctiva Clear ENT: Positive: Normal ENT inspection, Pharynx normal, TMs normal Respiratory/Lung Sounds: Positive: Clear to Auscultation, Breath Sounds Present Cardiovascular: Positive: Normal, RRR Abdomen Description: Positive: Nontender, Soft Bowel Sounds: Positive: Present Musculoskeletal: Positive: Normal Neurological: Positive: Sensory/Motor Intact, Alert, Oriented to Person Place, Time, CN Intact II-III Psychiatric: Positive: Normal - Douglas Coma Scale Best Eye Response: 4 - Spontaneous Best Motor Response: 6 - Obeys Commands Best Verbal Response: 5 - Oriented Coma Scale Total: 15 Procedures - Sedation Patient Received Moderate/Deep Sedation with Procedure: No Diagnostics - Vital Signs Vital Signs Temp Pulse Resp BP Pulse Ox 03/08/19 21:49 98.4 F 53 16 130/84 100 - Laboratory Lab Results: Lab Results 03/08/19 03/08/19 Range/Units 23:20 23:45 WBC 6.4 (3.5-10.8) 10^3/uL RBC 4.54 (4.18-5.48) 10^6 /uL Hgb 12.5 L (14.0-18.0) g/dL Hct 39 L (42-52) % MCV 85 (80-94) fL MCH 28 (27-31) pg MCHC 33 (31-36) g/dL RDW 14 (10-15) % Plt Count 252 (150-450) 10^3/uL MPV 8.3 (7.4-10.4) fL Neut % (Auto) 65.1 % Lymph % (Auto) 22.0 % [place] % (Auto) 8.0 % Eos % (Auto) 3.9 % Baso % (Auto) 1.0 % Absolute Neuts (auto) 4.1 (1.5-7.7) 10^3/ul Absolute Lymphs (auto) 1.4 (1.0-4.8) 10^3/ul Absolute Monos (auto) 0.5 (0-0.8) 10^3/ul Absolute Eos (auto) 0.2 (0-0.6) 10^3/ul Absolute Basos (auto) 0.1 (0-0.2) 10^3/ul Absolute Nucleated RBC 0.0 10^3/ul Nucleated RBC % 0.0 Urine Color Yellow Urine Appearance Turbid Urine pH 7.0 (5-9) Ur Specific [place] 1.014 (1.010-1.030) Urine Protein 1+(30 mg/dl) A (Negative) Urine Ketones Negative (Negative) Urine Blood 1+ A (Negative) Urine Nitrate Negative (Negative) Urine Bilirubin Negative (Negative) Urine Urobilinogen Negative (Negative) Ur Leukocyte Esterase 3+ A (Negative) Urine WBC (Auto) 3+(>20/hpf) A (Absent) Urine RBC (Auto) 1+(3-5/hpf) A (Absent) Urine Bacteria Absent (Absent) Urine Glucose Negative (Negative) Result Diagrams: 03/08/19 23:45 03/08/19 23:45 Lab Statement: Any lab studies that have been ordered have been reviewed, and results considered in the medical decision making process. - CT brain CT Interpretation Completed By: Radiologist Summary of CT Findings: IMPRESSION: No acute intracranial abnormality. Re-Evaluation - Re-Evaluation First Eval Re-Evaluation Time: 00:52 Comment: headache improved without any medications Headache Course/Dx - Course Course Of Treatment: 63 year old male presents with headache for the past couple days. He states it is not the worst headache of his leg. Has history of headaches but has not had one in a while. He states that he had a headache a week ago that resolved. He does have a history of Parkinson's. He states that he has had a little bit more of a tremor. He denies any seizure-like activity. He states that one of the nurses thought he had a seizure but the nurse that was with him did not. He denies being more weak than normal. No difficulties with speech more than normal. No numbness or tingling. No chest pain or shortness breath. Denies any other symptoms. No history of seizures. On exam tremor noted. Cranial nerves intact. No neuro deficit noted but does have a little bit of more weakness on right arm than other extremities. States does have a history of rotator injury. Brain CT normal. Labwork without significant abnormality. Gave pain medication for headache and feeling better. No seizure-like activity while in ED. Will discharge have follow-up with neurology. Patient understands agrees with plan. - Diagnoses Differential Diagnosis/HQI/PQRI: Migraine, Tension Headache, Viral Syndrome Provider Diagnoses: Headache Discharge ED - Sign-Out/Discharge Documenting (check all that apply): Patient Departure - Discharge Plan Condition: Good Disposition: HOME Patient Education Materials: Acute Headache (ED) Referrals: Wagner Hardy [Primary Care Provider] - Adiel Toledo MD [Medical Doctor] - Additional Instructions: follow up with neurology Take tyenlol as needed for pain Return to ED if develop any new or worsening symptoms - Billing Disposition and Condition Condition: GOOD Disposition: Home
[2019-03-09 00:01] LABS: INR 1.25 (0.82-1.09)
[2019-03-09 00:11] LABS: ALT < 3 U/L (7-52); AST 9 U/L (13-39); Albumin/Globulin Ratio 1.3 (1-3); Alkaline Phosphatase 88 U/L (34-104); Anion Gap 7 mmol/L (2-11); Blood Urea Nitrogen 26 mg/dL (6-24); CO2 Carbon Dioxide 27 mmol/L (22-32); Calcium 9.4 mg/dL (8.6-10.3); Chloride 104 mmol/L (101-111); EGFR African American 90.7 (>60); Globulin 3.2 g/dL (2-4); Glucose 143 mg/dL (70-100); Magnesium 1.8 mg/dL (1.9-2.7); Sodium 138 mmol/L (135-145); Total Protein 7.2 g/dL (6.4-8.9)
[2019-03-09] MEDS ORDERED: Morphine INJ* 2 MG/ML 1 ML SYRINGE (TWO MG - NEW SYRINGE VERSION) IV ONE (00:52)
[2019-03-09 03:17] VITALS: BP 137/88
--- NOTE | 2019-03-12 10:57 | ED ---
Imaging and Labs Follow Up Follow Up Type: Labs/Cultures Labs/Culture Result: Urine culture >100k morganella morganii Patient Communication/Plan: Pt. resides at [facility]. I spoke with YOMAIRA Lechuga, at [facility] at [phone] and culture was faxed over [phone]. Provider Diagnoses: Headache
== END 2019-03-09 03:16 | disposition home or self-care (01) ==
LOC: ED 21:48
DX: R51 Headache (principal); Z87.891 Personal history of nicotine dependence
CPT/HCPCS: 36415; 70450; 80053; 81003; 81015; 83605; 83735; 85025; 85610; 87077; 87086; 87186; 93005; 96374; 99284; J2270

== ENCOUNTER 2020-05-24 06:06 | Inpatient (IN) ==
[2020-05-24] MEDS ORDERED: Furosemide 100 mg/10 ml IV VIAL IV ONE (06:13)
[2020-05-24] MEDS ORDERED: Albuterol HFA INHALER 8 gm MDI INH ONE (06:14)
[2020-05-24 06:35] LABS: ABS Lymphocytes 0.2 10^3/ul (1.0-4.8); ABS Monocytes 0.3 10^3/ul (0-0.8); ABS Neutrophils 9.5 10^3/ul (1.5-7.7); Hematocrit 46 % (42-52); Hemoglobin 15.1 g/dL (14.0-18.0); Lymphocyte % 2.4 %; Mean Corpuscular HGB Conc 33 g/dL (31-36); Mean Corpuscular Hemoglobin 28 pg (27-31); Mean Corpuscular Volume 86 fL (80-94); Mean Platelet Volume 9.4 fL (7.4-10.4); Platelet Count 384 10^3/uL (150-450); Red Blood Count 5.32 10^6 /uL (4.18-5.48); Red Cell Distribution Width 15 % (10-15); White Blood Count 10.2 10^3/uL (3.5-10.8)
[2020-05-24 06:54] LABS: ALT 3 U/L (7-52); AST 23 U/L (13-39); Albumin 3.6 g/dL (3.2-5.2); Albumin/Globulin Ratio 0.8 (1-3); Alkaline Phosphatase 69 U/L (34-104); BUN/Creatinine Ratio 30.3 (8-20); Blood Urea Nitrogen 44 mg/dL (6-24); C Reactive Protein 265.67 mg/L (<8.01); CO2 Carbon Dioxide 24 mmol/L (22-32); Calcium 9.6 mg/dL (8.6-10.3); Chloride 110 mmol/L (101-111); EGFR African American 58.9 (>60); EGFR Non-African American 48.7 (>60); Globulin 4.6 g/dL (2-4); Glucose 290 mg/dL (70-100); Potassium 4.4 mmol/L (3.5-5.0); Total Protein 8.2 g/dL (6.4-8.9)
[2020-05-24 06:56] LABS: Anion Gap 13 mmol/L (2-11); Sodium 147 mmol/L (135-145)
[2020-05-24 06:59] LABS: Troponin I 0.04 ng/mL (<0.03)
[2020-05-24 07:20] LABS: Ferritin 560.2 ng/mL (24-336)
[2020-05-24] MEDS ORDERED: Iodixanol (CONTRAST) 320 MG/ML 100 ML SDV IV ONE ×2 (07:20→16:47)
[2020-05-24] MEDS ORDERED: Rocuronium 50 mg VIAL 10 mg/ml 5 ml VIAL (50 mg) IV ONE (07:56)
[2020-05-24] MEDS ORDERED: Propofol 10 mg/ml 100 ML BTL 100 ML IV ONE (07:57)
[2020-05-24] MEDS ORDERED: Etomidate 40 mg/20 ml (2 MG/ML) 20 ml VIAL (40 mg) ONE (07:57)
[2020-05-24] MEDS ORDERED: Rocuronium 50 mg VIAL 10 mg/ml 5 ml VIAL (50 mg) ONE ×2 (07:57→07:59)
[2020-05-24] MEDS ORDERED: Etomidate 20 mg/10 ml 2 MG/ML 10 ml VIAL IV ONE (07:57)
[2020-05-24 08:58] LABS: INR 1.51 (0.82-1.09)
[2020-05-24] MEDS ORDERED: Heparin 5000 UNITS/ML 1 mL VIAL SUBCUT SCH (09:00)
[2020-05-24 09:27] LABS: Urine Appearance Turbid; Urine Bilirubin Negative (Negative); Urine Blood 2+ (Negative); Urine Color Yellow; Urine Glucose Negative (Negative); Urine Ketones Negative (Negative); Urine Nitrite Negative (Negative); Urine Protein 2+(100 mg/dL) (Negative); Urine Specific Gravity 1.012 (1.010-1.030); Urine Urobilinogen Negative (Negative)
[2020-05-24 09:33] LABS: Urine Bacteria Absent (Absent); Urine Red Blood Cell 3+(>10/hpf) (Absent); Urine White Blood Cell 3+(>20/hpf) (Absent)
[2020-05-24] MEDS ORDERED: Remdesivir 5 MG/ML LIQ IV Vial 200 MG in NS 0.9% 250 ml 210 ML IV ONE (12:32)
[2020-05-24] MEDS: Chlorhexidine MOUTHWASH 0.12% 15 ML UDC TOPICAL SCH ×3 (12:55→20:49)
[2020-05-24] MEDS ORDERED: cefTRIAXone 1 gm/50 mL NS BAG 1 GM/50 ML BAG IVPB SCH (13:00)
[2020-05-24] MEDS ORDERED: D5W 1/2 NS 1000 ml BAG 1,000 ML IV SCH ×2 (13:00→18:30)
[2020-05-24] MEDS: Propofol 10 mg/ml 100 ML BTL 100 ML IV ONE ×2 (13:09→17:05)
[2020-05-24] MEDS ORDERED: Azithromycin 500 mg/250 ml NS 500 MG/250 ML BAG IVPB SCH ×2 (13:30→18:00)
[2020-05-24] MEDS: Dexamethasone IV 4 MG/ML VIAL 1 ml VIAL IV SLOW PU SCH (15:29)
[2020-05-24] MEDS ORDERED: Piperacillin/Tazobac ADVAN 3.375 GM in NS 0.9% 100 ml BAG 100 ML IV ONE (17:01)
[2020-05-24] MEDS ORDERED: Propofol 10 mg/ml 100 ML BTL 100 ML ONE (17:05)
[2020-05-24] MEDS ORDERED: Zosyn per Pharmacy NOTE FOLLOW UP SCH (18:00)
[2020-05-24 20:32] LABS: ABS Lymphocytes 0.4 10^3/ul (1.0-4.8); ABS Monocytes 0.5 10^3/ul (0-0.8); ABS Neutrophils 7.9 10^3/ul (1.5-7.7); Hematocrit 47 % (42-52); Hemoglobin 15.7 g/dL (14.0-18.0); Mean Corpuscular HGB Conc 33 g/dL (31-36); Mean Corpuscular Hemoglobin 28 pg (27-31); Mean Corpuscular Volume 85 fL (80-94); Mean Platelet Volume 9.8 fL (7.4-10.4); Platelet Count 343 10^3/uL (150-450); Red Blood Count 5.53 10^6 /uL (4.18-5.48); Red Cell Distribution Width 15 % (10-15); White Blood Count 8.8 10^3/uL (3.5-10.8)
[2020-05-24] MEDS: Linezolid 600 MG IVPREMIX(*) 600 MG/300 ML BAG IVPB SCH (20:50)
[2020-05-24 20:53] LABS: BUN/Creatinine Ratio 28.5 (8-20); Blood Urea Nitrogen 57 mg/dL (6-24); CO2 Carbon Dioxide 22 mmol/L (22-32); Calcium 9.2 mg/dL (8.6-10.3); Chloride 110 mmol/L (101-111); EGFR African American 40.7 (>60); EGFR Non-African American 33.6 (>60); Glucose 340 mg/dL (70-100); Sodium 145 mmol/L (135-145)
[2020-05-24 21:13] LABS: Troponin I 0.05 ng/mL (<0.03)
[2020-05-24 21:14] LABS: Anion Gap 13 mmol/L (2-11)
[2020-05-24] MEDS ORDERED: NS 0.9% 1000 ml BAG 1,000 ML IV ONE (21:55)
[2020-05-24] MEDS ORDERED: Propofol 10 mg/ml 100 ML BTL 100 ML IV SCH (23:00)
[2020-05-24] MEDS: Propofol 10 mg/ml 100 ML BTL 100 ML IV SCH (23:01)
[2020-05-24] MEDS: Propofol* 20 ML VIAL - FOR IV LINE PRIMING ONLY SCH (23:08)
[2020-05-25] MEDS: ZOSYN 3.375 GM Q8H per EXTENDED INFUSION IV SCH ×4 (00:07→22:23)
[2020-05-25] MEDS: Chlorhexidine MOUTHWASH 0.12% 15 ML UDC TOPICAL SCH ×6 (01:20→19:59)
[2020-05-25] MEDS ORDERED: NS 0.9% 1000 ml BAG 1,000 ML IV ONE ×2 (02:04→22:28)
[2020-05-25 04:57] LABS: INR 1.68 (0.82-1.09)
[2020-05-25 05:22] LABS: Potassium Redraw 4.4 mmol/L (3.5-5.0)
[2020-05-25 06:33] LABS: CO2 Carbon Dioxide 16 mmol/L (22-32); Calcium 8.5 mg/dL (8.6-10.3); Magnesium 1.8 mg/dL (1.9-2.7); Potassium 4.4 mmol/L (3.5-5.0)
[2020-05-25 06:37] LABS: Anion Gap 17 mmol/L (2-11); Chloride 115 mmol/L (101-111); Sodium 148 mmol/L (135-145)
[2020-05-25 06:38] LABS: Troponin I 0.03 ng/mL (<0.03)
[2020-05-25 06:39] LABS: Blood Urea Nitrogen 63 mg/dL (6-24); EGFR African American 41.4 (>60); EGFR Non-African American 34.2 (>60); Glucose 350 mg/dL (70-100)
[2020-05-25] MEDS: Linezolid 600 MG IVPREMIX(*) 600 MG/300 ML BAG IVPB SCH ×2 (07:06→18:17)
[2020-05-25] MEDS ORDERED: Magnesium Sulfate IV 1GM/100ML 1 GM/100 ML BAG IV ONE (07:29)
[2020-05-25] MEDS: Propofol 10 mg/ml 100 ML BTL 100 ML IV SCH ×4 (08:14→23:00)
[2020-05-25] MEDS ORDERED: Remdesivir 5 MG/ML LIQ IV Vial 100 MG in NS 0.9% 250 ml 230 ML IV SCH (09:00)
[2020-05-25] MEDS ORDERED: Enoxaparin 40 MG/0.4 ML SYR SUBCUT SCH (09:00)
[2020-05-25] MEDS: Dexamethasone IV 4 MG/ML VIAL 1 ml VIAL IV SLOW PU SCH (09:04)
[2020-05-25 09:36] LABS: Hematocrit 47 % (42-52); Hemoglobin 14.9 g/dL (14.0-18.0); Mean Corpuscular HGB Conc 32 g/dL (31-36); Mean Corpuscular Hemoglobin 27 pg (27-31); Mean Corpuscular Volume 86 fL (80-94); Mean Platelet Volume 9.8 fL (7.4-10.4); Platelet Count 343 10^3/uL (150-450); Red Blood Count 5.45 10^6 /uL (4.18-5.48); Red Cell Distribution Width 15 % (10-15); White Blood Count 8.7 10^3/uL (3.5-10.8)
[2020-05-25] MEDS: D5W 1000 ml BAG 1,000 ML IV SCH (11:51)
[2020-05-25] MEDS: Propofol* 20 ML VIAL - FOR IV LINE PRIMING ONLY SCH (12:19)
[2020-05-25] MEDS ORDERED: Acetaminophen IV 1 GM/100ML 100 ML IVPB ONE (12:33)
[2020-05-25] MEDS ORDERED: Dexmedetomidine 1,000 MCG in NS 0.9% 250 ml 240 ML IV SCH (15:00)
[2020-05-25] MEDS ORDERED: Azithromycin 500 mg/250 ml NS 500 MG/250 ML BAG IVPB SCH (15:30)
[2020-05-25] MEDS ORDERED: Albuterol/Ipratropium NEB.SOL (2.5/0.5 MG) 3 ML NEB.SOLN ONE (15:32)
[2020-05-25] MEDS ORDERED: fentaNYL 100 mcg/2 ml 50 MCG/ML VIAL IV SLOW PU ONE (20:12)
[2020-05-25] MEDS ORDERED: Norepinephrine 16MCG/ML IVPRE 4,000 MCG/250 ML BAG IV ONE (20:29)
[2020-05-25] MEDS: Norepinephrine 16MCG/ML IVPRE 4,000 MCG/250 ML BAG IV SCH (20:30)
[2020-05-25] MEDS ORDERED: fentaNYL 100 mcg/2 ml 50 MCG/ML VIAL ONE (20:39)
[2020-05-26] MEDS: Norepinephrine 16MCG/ML IVPRE 4,000 MCG/250 ML BAG IV SCH ×4 (00:22→08:40)
[2020-05-26] MEDS ORDERED: Phenylephrine INJ 50 MG in NS 0.9% IV SCH (01:00)
[2020-05-26] MEDS: D5W 1000 ml BAG 1,000 ML IV SCH (01:30)
[2020-05-26] MEDS: Propofol* 20 ML VIAL - FOR IV LINE PRIMING ONLY SCH (01:51)
[2020-05-26] MEDS: Chlorhexidine MOUTHWASH 0.12% 15 ML UDC TOPICAL SCH ×3 (01:55→08:22)
[2020-05-26] MEDS ORDERED: Acetaminophen IV 1 GM/100ML 100 ML ONE (04:36)
[2020-05-26] MEDS ORDERED: Acetaminophen IV 1 GM/100ML 100 ML IVPB ONE (04:40)
[2020-05-26] MEDS: Linezolid 600 MG IVPREMIX(*) 600 MG/300 ML BAG IVPB SCH (05:32)
[2020-05-26] MEDS: ZOSYN 3.375 GM Q8H per EXTENDED INFUSION IV SCH (06:38)
[2020-05-26 06:58] LABS: BUN/Creatinine Ratio 16.4 (8-20); Blood Urea Nitrogen 21 mg/dL (6-24); EGFR Non-African American 56.2 (>60); Phosphorus 1.3 mg/dL (2.5-5.0)
[2020-05-26] MEDS: Propofol 10 mg/ml 100 ML BTL 100 ML IV SCH (07:27)
[2020-05-26] MEDS ORDERED: Propofol 10 mg/ml 100 ML BTL 100 ML IV SCH (08:05)
[2020-05-26] MEDS: Dexamethasone IV 4 MG/ML VIAL 1 ml VIAL IV SLOW PU SCH (08:22)
[2020-05-26] MEDS ORDERED: Lorazepam PYXIS KEY PRN (09:00)
[2020-05-26] MEDS ORDERED: LORazepam 2 mg VIAL 1 ml IV PUSH PRN (09:00)
[2020-05-26 11:22] VITALS: BP 94/40
== END 2020-05-26 10:33 | disposition expired | DRG 177 ==
LOC: ED 06:06 → ICU 08:21
PROVIDERS: ADMIT Internal Medicine; ATTEND Internal Medicine